=== PATIENT | female | born 1980 | race Caucasian/White ===

== ENCOUNTER → 2022-10-22 | Outpatient (REF) | payer BC | LOC: M LAB REF 17:31 | PROVIDERS: ATTEND Family Medicine | DX: Z12.4 Encounter for screening for malignant neoplasm of cervix (principal) ==

== ENCOUNTER → 2025-06-03 | Outpatient (REF) | payer BC ==
[2025-06-07 12:27] LABS: HPV APTIMA Not Detected (Not Detected)
== END ==
LOC: M SFHCLERA 17:19
DX: Z01.419 Encounter for gynecological examination (general) (routine) without abnormal findings (principal)
CPT/HCPCS: 87624; G0123